=== PATIENT | male | born 1985 | race Two or more races ===

== ENCOUNTER 2016-07-07 18:36 | Emergency (ER) | payer SELFPAY ==
[~2016-07-07] VITALS: Ht 180.3 cm; Wt 60.0 kg
[2016-07-07 18:41] VITALS: BP 139/93
[2016-07-07] MEDS ORDERED: SODIUM CHLORIDE 0.9% 1,000 ML IV ONE (18:43)
[2016-07-07] MEDS ORDERED: SODIUM CHLORIDE 0.9% 1,000ML IVBOLUS ONE (19:00)
[2016-07-07] MEDS ORDERED: SODIUM CHLORIDE FLUSH 10ML SYR IVF ONE (19:00)
[2016-07-07] MEDS ORDERED: PLEASE ENTER HEIGHT AND WEIGHT MC SCH (19:00)
[2016-07-07 19:20] LABS: BLOOD UREA NITROGEN 10 mg/dL (7-18)
[2016-07-07 19:26] LABS: ASPARTATE AMINO TRANSFERASE 16 U/L (15-37)
[2016-07-07 19:27] LABS: IS PT STATUS REG ER OR PRE ER? YES
== END 2016-07-07 19:54 ==
LOC: ED 19:48
DX: R07.89 Other chest pain (principal); B34.9 Viral infection, unspecified; E87.1 Hypo-osmolality and hyponatremia; F10.20 Alcohol dependence, uncomplicated
CPT/HCPCS: 36415; 71010; 80053; 84484; 85025; 93005; 99285

== ENCOUNTER 2020-07-30 00:57 | Emergency (ER) | payer MEDICAID ==
[~2020-07-30] VITALS: Ht 180.3 cm; Wt 65.1 kg
[2020-07-30] MEDS ORDERED: ONDANSETRON 2MG/ML, 2ML IVPush ONE (01:30)
[2020-07-30] MEDS ORDERED: SODIUM CHLORIDE FLUSH 10ML SYR IVF ONE (01:30)
[2020-07-30] MEDS ORDERED: SODIUM CHLORIDE 0.9% 1,000ML IVBOLUS ONE (01:30)
[2020-07-30 01:43] LABS: BASOPHILS % (AUTO) 0 % (0-1); EOSINOPHILS % (AUTO) 0 % (1-7); LYMPHOCYTES % (AUTO) 14 % (22-44); MD NO; MEAN CORPUSCULAR HEMOGLOBIN 31.4 pg (27.5-34.5); MEAN CORPUSCULAR HGB CONC 35.6 g/dL (33.2-36.2); MEAN PLATELET VOLUME 8.2 fL (7.4-10.4); MONOCYTES % (AUTO) 7 % (2-9); NEUTROPHILS % (AUTO) 78 % (42-75); PLATELET COUNT 378 x10^3/uL (130-400); RED BLOOD COUNT 5.83 x10^6/uL (4.38-5.82); RED CELL DISTRIBUTION WIDTH 12.8 % (9.4-14.8)
[2020-07-30 01:49] LABS: ALANINE AMINOTRANSFERASE 36 U/L (12-78); ALBUMIN 4.1 g/dL (3.4-5.0); ANION GAP 7 mmol/L (5-15); CALCIUM 9.1 mg/dL (8.5-10.1); CHLORIDE 92 mmol/L (98-107); CREATININE 1.13 mg/dL (0.7-1.3)
[2020-07-30 01:52] LABS: ALKALINE PHOSPHATASE 113 U/L (45-117); BILIRUBIN,TOTAL 0.9 mg/dL (0.2-1.0); TOTAL PROTEIN 8.1 g/dL (6.4-8.2)
[2020-07-30] MEDS ORDERED: ONDANSETRON 2MG/ML, 2ML ONE (02:04)
--- NOTE | 2020-07-30 02:09 | NUR ---
PT MEDICATED PER MAY. PT UNABLE TO GIVE URINE AT THIS TIME. PT INSTRUCTED ON HOW TO GIVE URINE SAMPLE. PT RESTING ON ED GURNEY, EYSES CLOSED, EVEN RISE AND FALL OF CHEST NOTED. CALL LIGHT ON PT LAP. RAILS UP X 2. VSS. NAD.
--- NOTE | 2020-07-30 02:43 | NUR ---
PT URINE REQUESTED AND URINAL PLACED AT BEDSIDE.
--- NOTE | 2020-07-30 02:56 | NUR ---
PT REPORTING "BURNING" PAIN IN HIS ABD/THROAT. PAIN REPORTED TO PROVIDER.
[2020-07-30] MEDS ORDERED: MAALOX/HYOSCYAMINE/LIDOCAINE 45 ML BTL ONE (03:05)
--- NOTE | 2020-07-30 03:17 | NUR ---
PT MEDICATED PER MAR.
[2020-07-30 03:20] LABS: AMPHETAMINE SCREEN, URINE Positive (Negative); BARBITURATE SCREEN, URINE Negative (Negative); BENZODIAZEPINE SCREEN, URINE Negative (Negative); CANNABINOID SCREEN, URINE Positive (Negative); COCAINE SCREEN, URINE Negative (Negative); METHADONE SCREEN, URINE Negative (Negative); OPIATE SCREEN, URINE Negative (Negative)
[2020-07-30] MEDS ORDERED: MAALOX/HYOSCYAMINE/LIDOCAINE 45 ML BTL PO ONE (03:30)
[2020-07-30 04:04] VITALS: BP 124/77
--- NOTE | 2020-07-30 04:05 | NUR ---
PT REC'VD DISCHARGE INSTRUCTIONS AND EDUCATION. PT HAD NO FURTHER QUESTIONS.
--- NOTE | 2020-07-30 04:14 | NUR ---
PT PROVIDED BUS PASS. PT AMBULATED TO NV AREA, STEADY GAIT.
== END 2020-07-30 04:17 | disposition home or self-care (01) ==
LOC: ED 01:27
DX: K52.9 Noninfective gastroenteritis and colitis, unspecified (principal); Z59.0 Homelessness
CPT/HCPCS: 36415; 80053; 80307; 80320; 83690; 85025; 96374; 99285; J2405; J7030; G0480